=== PATIENT | male | born 1995 | race Caucasian/White ===

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

== ENCOUNTER 2017-07-10 14:58 | Emergency (ER) | payer OTHER ==
[~2017-07-10] VITALS: Ht 177.8 cm; Wt 88.0 kg
[2017-07-10 15:16] VITALS: Ht 177.8 cm; Wt 88.0 kg
[2017-07-10 21:20] VITALS: BP 122/86
== END 2017-07-10 21:21 | disposition home or self-care (01) ==
LOC: ED 14:58
DX: J45.901 Unspecified asthma with (acute) exacerbation (principal)
CPT/HCPCS: J7613; J7644

== ENCOUNTER 2018-05-26 12:00 | Emergency (ER) | payer OTHER ==
[~2018-05-26] VITALS: Ht 175.3 cm; Wt 76.7 kg
[2018-05-26 12:05] VITALS: Ht 175.3 cm; Wt 76.7 kg
[2018-05-26 14:28] VITALS: BP 142/89
== END 2018-05-26 14:28 | disposition home or self-care (01) ==
LOC: ED 12:00
DX: J45.909 Unspecified asthma, uncomplicated (principal)
CPT/HCPCS: J1100; J7613; J7644

== ENCOUNTER 2018-06-24 16:23 | Emergency (ER) | payer OTHER ==
[~2018-06-24] VITALS: Ht 175.3 cm; Wt 92.1 kg
[2018-06-24 18:40] VITALS: BP 132/76
== END 2018-06-24 18:40 | disposition home or self-care (01) ==
LOC: ED 16:23
DX: J40 Bronchitis, not specified as acute or chronic (principal)

== ENCOUNTER 2020-08-03 18:47 | Emergency (ER) | payer OTHER ==
[~2020-08-03] VITALS: Ht 180.3 cm; Wt 95.3 kg
[2020-08-03 18:53] VITALS: BP 146/97; Ht 180.3 cm; Wt 95.3 kg
== END 2020-08-03 19:53 | disposition home or self-care (01) ==
LOC: ED 18:47
DX: M26.621 Arthralgia of right temporomandibular joint (principal)